=== PATIENT | male | born 1945 | race Two or more races ===

== ENCOUNTER 2016-08-29 06:47 | Day surgery (SDC) | payer MEDICARE, OTHER ==
[~2016-08-29 06:47] MED LIST: CHONDR SULF 4%/HYALURONATE 3% 0.5 ML SYRINGE IO ONE; D5 1/2NS 500 ML IV SCH; EPINEPHRINE 0.5 MG in BALANCED SALT IRRIG SOLN NO.2 500 ML IO ONE; NEO/POLYMYX B SULF/DEXAMETH OP OINT 14 APPLIC/3.5 G TUBE OS ONE; PHENYLEPHRINE HCL 10% 100 GTTS/5 ML BOT SOLN.DROP OS PRN; PROPARACAINE HCL 0.5% 300 GTTS/BOT SOLN.DROP OS ONE
[2016-08-29] MEDS ORDERED: SODIUM CHLORIDE 0.9% 500 ML ONE (06:53)
[2016-08-29] MEDS ORDERED: IV START KIT ONE (06:54)
[2016-08-29] MEDS: CYCLOPENTOLATE HCL 1% 40 GTTS/2 ML BOT SOLN.DROP OS SCH ×2 (07:17→07:24)
[2016-08-29] MEDS: FLURBIPROFEN SODIUM 0.03% 50 GTTS/2.5 ML BOT SOLN.DROP OS SCH ×2 (07:17→07:25)
[2016-08-29] MEDS: PHENYLEPHRINE 2.5% OPHTH 40 GTTS/2 ML BOT SOLN.DROP OS SCH ×2 (07:18→07:24)
[2016-08-29] MEDS ORDERED: MIDAZOLAM HCL 1 MG/ML 2ML VIAL ONE (07:30)
--- NOTE | 2016-08-30 09:48 | OP ---
Riccardo Carter [id number] DATE OF PROCEDURE: 08/29/2016 PREOPERATIVE DIAGNOSIS: Cataract OS. POSTOPERATIVE DIAGNOSIS: Pseudophakia OS. PROCEDURE: PHACOEMULSIFICATION AND POSTERIOR CHAMBER INTRAOCULAR LENS OS. ANESTHESIA: Monitored anesthesia care (MAC) with topical. SURGEON: Kurt Zarate M.D. COMPLICATIONS: None. DESCRIPTION OF PROCEDURE: After informed consent was obtained the patient was brought back to the operating room and laid in the supine position. Cardiac monitors and intravenous access were obtained by nursing and the patient underwent intravenous sedation without complication. Once adequate sedation was in place the patient was prepped and draped in the usual sterile fashion and a lid speculum was placed in the left eye. Attention was directed to the limbus at 6 o'clock where a side port was created using a 15 degree blade. Upon entering the anterior chamber non-preserved lidocaine was placed anterior chamber followed by reinflating the anterior chamber with Viscoelastic. A clear corneal incision was then created at the limbus at three o'clock using a grooved blade followed by a 2.4 mm keratome blade. Upon entering the anterior chamber a curvilinear capsulorrhexis was initiated and completed with the Utrata forceps. Balanced salt solution (BSS) was used to hydrodissect the cataract and the cataract was removed with a phacoemulsification unit in a phaco-chop technique. The remaining cortical remnants were removed with the irrigation and aspiration unit. Viscoelastic was used to reinflate the capsular bag and anterior chamber. An intraocular lens SN60WF, 20.5 diopter lens was removed from packaging and found to be without defect. This was placed into the injector and injected into the capsular bag without difficulty. The posterior haptic was rotated into position using a Kuglen hook. The lens was noted to be well centered in the bag. The viscoelastic was then removed with the irrigation and aspiration unit. The anterior chamber was reinflated with Balanced salt solution (BSS). The wounds were inspected and found to be watertight. The patient had Maxitrol ointment placed in the eye, had the lid speculum removed, and a shield placed and left the operating room in good condition and there were no complications. JOB: [id number]
== END 2016-08-29 08:45 | disposition home or self-care (01) ==
LOC: SDC 06:47
PROVIDERS: ATTEND Ophthalmology
PROC: 08RK3JZ Replacement of Left Lens with Synthetic Substitute, Percutaneous Approach (ICD-10-PCS; principal; 2016-08-29)
DX: H26.9 Unspecified cataract (principal); E11.9 Type 2 diabetes mellitus without complications; I10 Essential (primary) hypertension; J45.909 Unspecified asthma, uncomplicated; Z88.1 Allergy status to other antibiotic agents; Z88.8 Allergy status to other drugs, medicaments and biological substances; Z85.828 Personal history of other malignant neoplasm of skin; Z85.46 Personal history of malignant neoplasm of prostate
CPT/HCPCS: 66984; J2250; J7040; J0171; V2630

== ENCOUNTER 2016-09-26 07:44 | Day surgery (SDC) | payer MEDICARE, OTHER ==
[~2016-09-26 07:44] MED LIST changes: +LIDOCAINE 4% (PRES FREE) 1 ML, BALANCED SALT IRRIG SOLN COMB2 3 ML, EPINEPHRINE 1.25 MG IO ONE; +NEO/POLYMYX B SULF/DEXAMETH OP OINT 14 APPLIC/3.5 G TUBE OD ONE; -NEO/POLYMYX B SULF/DEXAMETH OP OINT 14 APPLIC/3.5 G TUBE OS ONE; +PHENYLEPHRINE HCL 10% 100 GTTS/5 ML BOT SOLN.DROP OD PRN; -PHENYLEPHRINE HCL 10% 100 GTTS/5 ML BOT SOLN.DROP OS PRN; +PROPARACAINE HCL 0.5% 300 GTTS/BOT SOLN.DROP OD ONE; -PROPARACAINE HCL 0.5% 300 GTTS/BOT SOLN.DROP OS ONE
[2016-09-26] MEDS ORDERED: IV START KIT ONE (07:51)
[2016-09-26] MEDS: CYCLOPENTOLATE HCL 1% 40 GTTS/2 ML BOT SOLN.DROP OD SCH ×2 (08:11→08:20)
[2016-09-26] MEDS: PHENYLEPHRINE 2.5% OPHTH 40 GTTS/2 ML BOT SOLN.DROP OD SCH ×2 (08:12→08:19)
[2016-09-26] MEDS: FLURBIPROFEN SODIUM 0.03% 50 GTTS/2.5 ML BOT SOLN.DROP OD SCH ×2 (08:12→08:20)
[2016-09-26] MEDS ORDERED: MIDAZOLAM HCL 1 MG/ML 2ML VIAL ONE (08:56)
[2016-09-26] MEDS ORDERED: POVIDONE-IODINE 5% OPHTH SOLN 600 GTTS/BOT SOLN.DROP ONE (09:12)
--- NOTE | 2016-09-30 06:35 | OP ---
CINDI MORROW [id number] DATE OF PROCEDURE: 09/26/2016 PREOPERATIVE DIAGNOSIS: Cataract OD. POSTOPERATIVE DIAGNOSIS: Pseudophakia OD. PROCEDURE: PHACOEMULSIFICATION AND POSTERIOR CHAMBER INTRAOCULAR LENS OD. SURGEON: Dr. Kurt Zraate ANESTHESIA: MAC with topical. COMPLICATIONS: None. DESCRIPTION OF PROCEDURE: After informed consent was obtained, the patient was brought back to the operating room and laid in supine position. Cardiac monitors and IV access were obtained by nursing and the patient underwent IV sedation without complication. Once adequate sedation was in place, the patient was prepped and draped in the usual sterile fashion and a lid speculum was placed in the right eye. Attention was directed to the limbus at 12 o'clock where a side port was created using a 15-degree blade. Upon entering the anterior chamber, nonpreserved lidocaine was placed intracamerally, followed by reinflating the anterior chamber with viscoelastic. A clear corneal incision was then created at the limbus at 9 o'clock using a grooved blade, followed by a 2.4 mm Keratome blade. Upon entering the anterior chamber, Utrata forceps were used to create a curvilinear capsulorrhexis. A balanced salt solution (BSS) was used to hydrodissect the cataract and the cataract was removed with the phacoemulsification unit and a phaco-chop technique. The remaining cortical remnants were removed with the irrigation and aspiration unit. The anterior chamber and capsular bag were then reinflated with Viscoelastic. The intraocular lens and SN60WF, 23.0 diopter lens was removed from packaging and found to be without defect. This was placed into the injector and injected into the capsular bag without difficulty. The posterior haptic was rotated into position using a Kuglen hook. The lens was noted to be well-centered in the bag. The remaining viscoelastic was then removed with the irrigation and aspiration unit. The patient had the anterior chamber reinflated with a balanced salt solution (BSS). The wounds were inspected and were found to be watertight. Maxitrol ointment was placed in the eye. The patient had a shield placed following removal of the lid speculum, and left the operating room in good condition. There were no complications.
== END 2016-09-26 10:40 | disposition home or self-care (01) ==
LOC: SDC 07:44
PROVIDERS: ATTEND Ophthalmology
PROC: 08RJ3JZ Replacement of Right Lens with Synthetic Substitute, Percutaneous Approach (ICD-10-PCS; principal; 2016-09-26)
DX: H26.9 Unspecified cataract (principal); I10 Essential (primary) hypertension; E11.9 Type 2 diabetes mellitus without complications; J45.909 Unspecified asthma, uncomplicated; Z85.46 Personal history of malignant neoplasm of prostate; Z85.828 Personal history of other malignant neoplasm of skin; Z98.42 Cataract extraction status, left eye; Z96.1 Presence of intraocular lens; Z88.1 Allergy status to other antibiotic agents; Z88.8 Allergy status to other drugs, medicaments and biological substances
CPT/HCPCS: 66984; J2250; J0171 ×2; V2630